=== PATIENT | male | born 1955 | race American Indian/Alaskan Native ===

== ENCOUNTER 2017-03-02 13:10 | Outpatient (CLI) | payer BC ==
--- NOTE | 2017-03-02 16:22 | XRay Report ---
XRAY BILATERAL FOOT THREE VIEWS EACH: 03/02/17 13:10:00 CLINICAL: Bilateral heel pain for 2 months. FINDINGS: Right: Moderate-sized plantar and Achilles spurs. No fracture or dislocation. The joint spaces are normal.Normal soft tissues. Left: Moderate-sized Achilles and plantar spurs. No fracture or dislocation. The joint spaces are normal. Normal soft tissues. IMPRESSION: Bilateral plantar and Achilles enthesopathy.
== END 2017-03-02 13:11 | disposition home or self-care (01) ==
LOC: SPVIMAG 13:10
PROVIDERS: ATTEND Internal Medicine
DX: M72.2 Plantar fascial fibromatosis (principal); M77.8 Other enthesopathies, not elsewhere classified; M25.861 Other specified joint disorders, right knee; M25.862 Other specified joint disorders, left knee